=== PATIENT | female | born 1950 | race Caucasian/White ===

== ENCOUNTER 2017-12-16 18:42 | Inpatient (IN) | payer OTHER ==
[~2017-12-16] VITALS: Ht 157.5 cm; Wt 87.1 kg
[2017-12-16 19:41] LABS: BASOPHIL % 0.5 % (0-2); PLATELET COUNT 179 x10^3mcL (130-400)
[2017-12-16 19:42] LABS: RED CELL DISTRIBUTION WIDTH 17.2 % (11.5-14.5)
[2017-12-16 20:01] LABS: CALCIUM 9.4 mg/dL (8.5-10.1); CARBON DIOXIDE 21.4 mmol/L (21-32); CREATININE SERUM 1.3 mg/dL (0.6-1.0); POTASSIUM SERUM 3.7 mmol/L (3.5-5.1)
[2017-12-16 20:06] LABS: BILIRUBIN TOTAL 0.6 mg/dL (0.20-1.00); TOTAL PROTEIN, SERUM 7.8 g/dL (6.4-8.2)
[2017-12-16 20:11] LABS: ALBUMIN 3.3 g/dL (3.4-5.0)
[2017-12-16 21:14] LABS: CHOLESTEROL/HDL RATIO 4.3; MAGNESIUM 1.9 mg/dL (1.8-2.4); PHOSPHOROUS 3.6 mg/dL (2.5-4.9)
[2017-12-16 21:23] LABS: T3 TOTAL 1.11 ng/mL
[2017-12-16] MEDS ORDERED: INVOKAMET1 TAB PO (21:26)
[2017-12-16] MEDS ORDERED: ACT15 PO (21:26)
[2017-12-16] MEDS ORDERED: EPZICOM1 TAB (21:27)
[2017-12-16] MEDS ORDERED: BEN (21:27)
[2017-12-16] MEDS ORDERED: SYNTHROID0.05 MG PO (21:37)
[2017-12-16] MEDS ORDERED: BENAZEPRIL HYDR40 M1 PO (21:38)
[2017-12-16] MEDS ORDERED: TOUJEO300 U/ML SC (21:39)
[2017-12-16 22:01] LABS: FREE T4 0.98 ng/dL (0.76-1.46); FREE THYROXINE INDEX 2.5 ug/dL (1.4-4.5); T4(THYROXINE) 7.8 ug/dL (4.7-13.3)
[2017-12-16 22:18] VITALS: BP 140/64
[2017-12-17 03:30] LABS: microscopic required? NO
[2017-12-17 03:47] LABS: UA SPECIFIC GRAVITY 1.015 (1.005-1.035); urine erythrocyte NEGATIVE (NEGATIVE)
[2017-12-17 03:56] LABS: AMPHETAMINE QUAL UR NONE DETECTED (NEG <=1000)
[2017-12-17 05:07] VITALS: BP 98/49
[2017-12-17 06:53] LABS: CALCIUM 8.9 mg/dL (8.5-10.1); CARBON DIOXIDE 23.8 mmol/L (21-32); CREATININE SERUM 1.2 mg/dL (0.6-1.0); POTASSIUM SERUM 3.8 mmol/L (3.5-5.1)
[2017-12-17 07:41] VITALS: Ht 157.5 cm; Wt 87.1 kg
[2017-12-17 09:41] VITALS: BP 105/48
[2017-12-17 10:33] LABS: BASOPHIL % 0.5 % (0-2); PLATELET COUNT 164 x10^3mcL (130-400); RED CELL DISTRIBUTION WIDTH 16.8 % (11.5-14.5)
[2017-12-17 11:02] VITALS: BP 121/62
[2017-12-17 15:40] VITALS: BP 115/57
[2017-12-17 17:34] VITALS: BP 113/53
[2017-12-17 20:40] VITALS: BP 117/59
[2017-12-18 05:38] VITALS: BP 108/56
[2017-12-18 06:11] LABS: BASOPHIL % 0.2 % (0-2); PLATELET COUNT 158 x10^3mcL (130-400)
[2017-12-18 06:28] LABS: CALCIUM 8.4 mg/dL (8.5-10.1); CARBON DIOXIDE 23.5 mmol/L (21-32); CHLORIDE SERUM 109 mmol/L (98-107); CREATININE SERUM 0.8 mg/dL (0.6-1.0); GFR1 > 60 mL/min; GLUCOSE SERUM 131 mg/dL (74-106); MAGNESIUM 1.9 mg/dL (1.8-2.4); POTASSIUM SERUM 4.4 mmol/L (3.5-5.1); SODIUM SERUM 142 mmol/L (136-145)
[2017-12-18 09:13] VITALS: BP 102/44
[2017-12-18 14:06] VITALS: BP 131/55
[2017-12-18 17:05] VITALS: BP 124/55
[2017-12-19] VITALS (7 sets, daily range): BP systolic 106–142; BP diastolic 51–76
[2017-12-19 07:13] LABS: BASOPHIL % 0.4 % (0-2); PLATELET COUNT 134 x10^3mcL (130-400)
[2017-12-19 07:16] LABS: RED CELL DISTRIBUTION WIDTH 16.8 % (11.5-14.5)
[2017-12-19 07:21] LABS: CALCIUM 8.7 mg/dL (8.5-10.1); CARBON DIOXIDE 22.7 mmol/L (21-32); CHLORIDE SERUM 111 mmol/L (98-107); CREATININE SERUM 0.7 mg/dL (0.6-1.0); GFR1 > 60 mL/min; GLUCOSE SERUM 81 mg/dL (74-106); PHOSPHOROUS 2.4 mg/dL (2.5-4.9); POTASSIUM SERUM 3.9 mmol/L (3.5-5.1); SODIUM SERUM 142 mmol/L (136-145)
[2017-12-19] MEDS ORDERED: NOR10T PO (17:34)
== END 2017-12-19 21:03 | DRG 480 ==
LOC: ED 18:42 → DU 20:55
PROVIDERS: Emergency Medicine; Family Medicine; Neuromusculoskeletal Medicine, Sports Medicine; Student in an Organized Health Care Education/Training Program
PROC: 0QS704Z Reposition Left Upper Femur with Internal Fixation Device, Open Approach (ICD-10-PCS; principal; 2017-12-17 13:00)
DX: S72.012A Unspecified intracapsular fracture of left femur, initial encounter for closed fracture (principal); N17.0 Acute kidney failure with tubular necrosis; S42.292A Other displaced fracture of upper end of left humerus, initial encounter for closed fracture; E11.65 Type 2 diabetes mellitus with hyperglycemia; S09.90XA Unspecified injury of head, initial encounter; I10 Essential (primary) hypertension; E03.9 Hypothyroidism, unspecified; M85.89 Other specified disorders of bone density and structure, multiple sites; E66.9 Obesity, unspecified; Z79.4 Long term (current) use of insulin; Z68.38 Body mass index [BMI] 38.0-38.9, adult; W17.89XA Other fall from one level to another, initial encounter; Y92.018 Other place in single-family (private) house as the place of occurrence of the external cause
CPT/HCPCS: 82962; 83880; 84439; 94150; 97110-GP; 97116-GP; 97530-GP; 97535-GP; C1713; J0690; J1644; J1815; J1885; J2270; J2405; J2704; J3010; J3490; J7030; Q0092

== ENCOUNTER 2018-05-22 06:46 | Emergency (ER) | payer OTHER ==
[~2018-05-22] VITALS: Ht 157.5 cm; Wt 74.8 kg
[~2018-05-22 06:46] MED LIST: ACT15 PO; BEN; BENAZEPRIL HYDR40 M1 PO; EPZICOM1 TAB; INVOKAMET1 TAB PO; NOR10T PO; SYNTHROID0.05 MG PO; TOUJEO300 U/ML SC
[2018-05-22 06:49] VITALS: Ht 157.5 cm; Wt 74.8 kg
[2018-05-22 07:40] LABS: BASOPHIL % 0.2 % (0-2); PLATELET COUNT 356 x10^3mcL (130-400)
[2018-05-22 07:42] LABS: RED CELL DISTRIBUTION WIDTH 17.8 % (11.5-14.5)
[2018-05-22 07:46] LABS: microscopic required? YES; urine erythrocyte 3+ (NEGATIVE)
[2018-05-22 07:52] LABS: CALCIUM 9.9 mg/dL (8.5-10.1); CARBON DIOXIDE 25.9 mmol/L (21-32); POTASSIUM SERUM 3.8 mmol/L (3.5-5.1)
[2018-05-22 07:59] LABS: BILIRUBIN TOTAL 1.3 mg/dL (0.20-1.00); TOTAL PROTEIN, SERUM 9.4 g/dL (6.4-8.2)
[2018-05-22 13:06] VITALS: BP 115/63
== END 2018-05-22 13:06 | disposition home or self-care (01) ==
LOC: ED 06:46
PROVIDERS: Emergency Medicine
DX: N30.00 Acute cystitis without hematuria (principal); I10 Essential (primary) hypertension; E11.9 Type 2 diabetes mellitus without complications
CPT/HCPCS: 36415; Q0092